=== PATIENT | male | born 1995 | race Caucasian/White ===

== ENCOUNTER 2018-03-31 17:37 | Emergency (ER) | payer SELFPAY ==
[~2018-03-31] VITALS: Ht 180.3 cm; Wt 71.8 kg
[2018-03-31 18:08] LABS: BASOPHILS # (AUTO) 0.03 x10^3/uL (0-0.1); BASOPHILS % (AUTO) 1 % (0-1); EOSINOPHILS # (AUTO) 0.13 x10^3/uL (0-0.4); EOSINOPHILS % (AUTO) 2 % (1-7); LYMPHOCYTES # (AUTO) 2.05 x10^3/uL (1-3.4); LYMPHOCYTES % (AUTO) 31 % (22-44); MD NO; MEAN CORPUSCULAR HEMOGLOBIN 30.2 pg (27.5-34.5); MEAN CORPUSCULAR HGB CONC 35.1 g/dL (33.2-36.2); MEAN PLATELET VOLUME 9.6 fL (7.4-10.4); MONOCYTES # (AUTO) 0.48 x10^3/uL (0.2-0.8); MONOCYTES % (AUTO) 7 % (2-9); NEUTROPHILS # (AUTO) 3.89 x10^3/uL (1.8-6.8); NEUTROPHILS % (AUTO) 59 % (42-75); PLATELET COUNT 219 x10^3/uL (130-400); RED BLOOD COUNT 5.73 x10^6/uL (4.38-5.82); RED CELL DISTRIBUTION WIDTH 12.9 % (9.4-14.8)
[2018-03-31 18:20] LABS: ALANINE AMINOTRANSFERASE 43 U/L (12-78); ALBUMIN 3.7 g/dL (3.4-5.0); ANION GAP 8 mmol/L (5-15); CALCIUM 8.6 mg/dL (8.5-10.1); CHLORIDE 106 mmol/L (98-107); CREATININE 1.03 mg/dL (0.7-1.3)
[2018-03-31 18:22] LABS: ALKALINE PHOSPHATASE 127 U/L (45-117); BILIRUBIN,TOTAL 0.5 mg/dL (0.2-1.0); TOTAL PROTEIN 6.8 g/dL (6.4-8.2)
[2018-03-31 18:44] LABS: MICROSCOPIC NOT IND
[2018-03-31 18:48] LABS: CULTURE INDICATED? NO
[2018-03-31 19:00] VITALS: BP 110/63
== END 2018-03-31 19:37 | disposition home or self-care (01) ==
LOC: ED 18:00
DX: R10.84 Generalized abdominal pain (principal); Z88.8 Allergy status to other drugs, medicaments and biological substances
CPT/HCPCS: 36415; 74021; 80053; 81003; 83690; 85025; 99285

== ENCOUNTER 2018-05-24 08:20 | Emergency (ER) | payer OTHER ==
[~2018-05-24] VITALS: Ht 180.3 cm; Wt 73.5 kg
[2018-05-24] MEDS ORDERED: ASPIRIN 81 MG TABLET CHEW PO ONE (09:00)
[2018-05-24 09:28] LABS: BASOPHILS # (AUTO) 0.03 x10^3/uL (0-0.1); BASOPHILS % (AUTO) 0 % (0-1); EOSINOPHILS # (AUTO) 0.25 x10^3/uL (0-0.4); EOSINOPHILS % (AUTO) 4 % (1-7); LYMPHOCYTES # (AUTO) 1.94 x10^3/uL (1-3.4); LYMPHOCYTES % (AUTO) 28 % (22-44); MD NO; MEAN CORPUSCULAR HEMOGLOBIN 29.6 pg (27.5-34.5); MEAN CORPUSCULAR HGB CONC 34.3 g/dL (33.2-36.2); MEAN CORPUSCULAR VOLUME 86.3 fL (81-97); MONOCYTES # (AUTO) 0.55 x10^3/uL (0.2-0.8); MONOCYTES % (AUTO) 8 % (2-9); NEUTROPHILS # (AUTO) 4.16 x10^3/uL (1.8-6.8); NEUTROPHILS % (AUTO) 60 % (42-75); PLATELET COUNT 193 x10^3/uL (130-400); RED BLOOD COUNT 5.59 x10^6/uL (4.38-5.82); RED CELL DISTRIBUTION WIDTH 13.1 % (9.4-14.8)
[2018-05-24 09:38] LABS: ALANINE AMINOTRANSFERASE 39 U/L (12-78); ALBUMIN 3.8 g/dL (3.4-5.0); ANION GAP 4 mmol/L (5-15); CALCIUM 8.1 mg/dL (8.5-10.1); CHLORIDE 109 mmol/L (98-107); CREATININE 0.88 mg/dL (0.7-1.3)
[2018-05-24 09:43] LABS: ALKALINE PHOSPHATASE 138 U/L (45-117); BILIRUBIN,TOTAL 0.4 mg/dL (0.2-1.0); TOTAL PROTEIN 7.1 g/dL (6.4-8.2); TROPONIN I < 0.015 ng/mL (0.000-0.045)
[2018-05-24] MEDS ORDERED: RANI150T23 PO (10:25)
[2018-05-24 10:58] VITALS: BP 126/72
== END 2018-05-24 11:00 | disposition home or self-care (01) ==
LOC: ED 10:47
DX: R07.89 Other chest pain (principal)
CPT/HCPCS: 36415; 71046; 80053; 83690; 84484; 85025; 93005; 99285

== ENCOUNTER 2018-09-18 16:26 | Emergency (ER) | payer MEDICAID ==
[~2018-09-18] VITALS: Ht 177.8 cm; Wt 72.2 kg
[~2018-09-18 16:26] MED LIST: RANI150T23 PO
[2018-09-18 16:32] VITALS: BP 127/87
[2018-09-18 16:59] LABS: BASOPHILS # (AUTO) 0.04 x10^3/uL (0-0.1); BASOPHILS % (AUTO) 1 % (0-1); EOSINOPHILS # (AUTO) 0.22 x10^3/uL (0-0.4); EOSINOPHILS % (AUTO) 4 % (1-7); LYMPHOCYTES # (AUTO) 2.18 x10^3/uL (1-3.4); LYMPHOCYTES % (AUTO) 37 % (22-44); MD NO; MEAN CORPUSCULAR HEMOGLOBIN 29.3 pg (27.5-34.5); MEAN CORPUSCULAR HGB CONC 34.2 g/dL (33.2-36.2); MEAN CORPUSCULAR VOLUME 85.7 fL (81-97); MEAN PLATELET VOLUME 9.8 fL (7.4-10.4); MONOCYTES % (AUTO) 8 % (2-9); NEUTROPHILS # (AUTO) 3.04 x10^3/uL (1.8-6.8); NEUTROPHILS % (AUTO) 51 % (42-75); PLATELET COUNT 199 x10^3/uL (130-400); RED BLOOD COUNT 5.57 x10^6/uL (4.38-5.82); RED CELL DISTRIBUTION WIDTH 13.1 % (9.4-14.8)
[2018-09-18 17:09] LABS: ALBUMIN 4.4 g/dL (3.4-5.0); ANION GAP 7 mmol/L (5-15); CALCIUM 9.1 mg/dL (8.5-10.1); CHLORIDE 106 mmol/L (98-107); CREATININE 0.97 mg/dL (0.7-1.3)
--- NOTE | 2018-09-18 17:15 | NUR ---
Patient ambulated to room from lobby with steady gait and balance.
[2018-09-18] MEDS ORDERED: OMEP-110 PO (18:04)
--- NOTE | 2018-09-18 18:04 | NUR ---
Pt has c/o epigastric pain with "possible h.pylori and body pains." NADN. Pt connected to all monitors. No need expressed at this time.
--- NOTE | 2018-09-18 18:42 | NUR ---
Patient given discharge instructions and they have confirmed that they understand the instructions. Patient ambulatory with steady gait. Pt left with prescriptions, discharge paperwork, and all personal belongings. Pt refusing discharge vital signs to be taken, "I am ready to leave now".
== END 2018-09-18 18:45 | disposition home or self-care (01) ==
LOC: ED 18:15
DX: R07.89 Other chest pain (principal); K29.00 Acute gastritis without bleeding; M79.10 Myalgia, unspecified site; M54.2 Cervicalgia
CPT/HCPCS: 36415; 71045; 80048; 82040; 85025; 93005; 99284

== ENCOUNTER 2018-11-29 12:19 | Emergency (ER) | payer MEDICAID ==
[~2018-11-29] VITALS: Ht 180.3 cm; Wt 74.0 kg
[~2018-11-29 12:19] MED LIST changes: +OMEP-110 PO
[2018-11-29] MEDS ORDERED: SODIUM CHLORIDE FLUSH 10ML SYR IVF ONE (13:00)
[2018-11-29 13:02] LABS: BASOPHILS # (AUTO) 0.02 x10^3/uL (0-0.1); BASOPHILS % (AUTO) 1 % (0-1); EOSINOPHILS # (AUTO) 0.06 x10^3/uL (0-0.4); EOSINOPHILS % (AUTO) 2 % (1-7); LYMPHOCYTES # (AUTO) 1.57 x10^3/uL (1-3.4); LYMPHOCYTES % (AUTO) 36 % (22-44); MD NO; MEAN CORPUSCULAR HEMOGLOBIN 29.4 pg (27.5-34.5); MEAN CORPUSCULAR HGB CONC 34.5 g/dL (33.2-36.2); MEAN CORPUSCULAR VOLUME 85.3 fL (81-97); MEAN PLATELET VOLUME 10.3 fL (7.4-10.4); MONOCYTES # (AUTO) 0.39 x10^3/uL (0.2-0.8); MONOCYTES % (AUTO) 9 % (2-9); NEUTROPHILS # (AUTO) 2.34 x10^3/uL (1.8-6.8); NEUTROPHILS % (AUTO) 53 % (42-75); PLATELET COUNT 195 x10^3/uL (130-400); RED BLOOD COUNT 5.64 x10^6/uL (4.38-5.82); RED CELL DISTRIBUTION WIDTH 13.4 % (9.4-14.8)
[2018-11-29 13:13] LABS: ALBUMIN 4.9 g/dL (3.4-5.0); ANION GAP 4 mmol/L (5-15); CALCIUM 9.6 mg/dL (8.5-10.1); CHLORIDE 106 mmol/L (98-107)
[2018-11-29 13:24] LABS: ALANINE AMINOTRANSFERASE 38 U/L (12-78); ALKALINE PHOSPHATASE 122 U/L (45-117); BILIRUBIN,TOTAL 0.6 mg/dL (0.2-1.0); CREATININE 1.07 mg/dL (0.7-1.3); TOTAL PROTEIN 8.1 g/dL (6.4-8.2)
--- NOTE | 2018-11-29 13:29 | NUR ---
pt presented to ed with right lower quadrant abd pain since last night. pt has been seeing a gi doctor at which he was getting lab work done for celiac disease. pt a&ox4. pt placed on bp and cont. pulse oximeter. assessment completed. call light in reach.
--- NOTE | 2018-11-29 13:59 | NUR ---
PT GIVEN WATER TO DRINK
[2018-11-29 15:10] VITALS: BP 132/75
--- NOTE | 2018-11-29 15:10 | NUR ---
PT DISCHARGED WITH DISCHARGE INSTRUCTIONS AND FOLLOW UP INSTRUCTIONS.
== END 2018-11-29 15:12 | disposition home or self-care (01) ==
LOC: ED 15:06
DX: K90.0 Celiac disease (principal); R10.31 Right lower quadrant pain
CPT/HCPCS: 36415; 80053; 85025; 99283

== ENCOUNTER 2020-04-19 20:03 | Emergency (ER) | payer SELFPAY ==
[~2020-04-19] VITALS: Ht 177.8 cm; Wt 37.7 kg
[~2020-04-19 20:03] MED LIST changes: +RANI-467 PO; -RANI150T23 PO
--- NOTE | 2020-04-19 20:37 | NUR ---
PT STATES HE STEPPED ON BAILING WIRE, PUNCTURE SITE TO BALL OF FOOT RT LATERAL, WAS WEARING GYM SHOES. TD BOOSTER 01/18/2017. Addendum: 04/19/20 at 2038 by ALONZO CORRECTION: LT FOOT
--- NOTE | 2020-04-19 20:44 | NUR ---
PT REQUESTING IBUPROFEN. ERP WILL BE NOTIFIED.
[2020-04-19] MEDS ORDERED: IBUPROFEN 600 MG TABLET PO ONE (21:00)
[2020-04-19] MEDS ORDERED: IBUPROFEN 600 MG TABLET ONE (21:05)
[2020-04-19 21:42] VITALS: BP 121/58
== END 2020-04-19 21:44 | disposition home or self-care (01) ==
LOC: ED 21:29
DX: S91.332A Puncture wound without foreign body, left foot, initial encounter (principal); X58.XXXA Exposure to other specified factors, initial encounter; Y93.01 Activity, walking, marching and hiking; Y92.89 Other specified places as the place of occurrence of the external cause; Y99.8 Other external cause status
CPT/HCPCS: 99283

== ENCOUNTER 2021-02-12 16:11 | Emergency (ER) | payer OTHER ==
[~2021-02-12] VITALS: Ht 177.8 cm; Wt 89.4 kg
[2021-02-12] MEDS ORDERED: FAMOTIDINE 20 MG TABLET ONE (16:22)
[2021-02-12] MEDS ORDERED: DIPHENHYDRAMINE 25 MG CAPSULE ONE (16:23)
[2021-02-12] MEDS ORDERED: FAMOTIDINE 20 MG TABLET PO ONE (16:30)
[2021-02-12] MEDS ORDERED: DIPHENHYDRAMINE 25 MG CAPSULE PO ONE (16:30)
--- NOTE | 2021-02-12 18:19 | NUR ---
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
[2021-02-12 18:32] VITALS: BP 125/80
--- NOTE | 2021-02-12 18:33 | NUR ---
PT REPORTS HIS TONGUE DOESN'T FEEL ITCHY ANYMORE. DARRYL THOMPSON AT BEDSIDE
== END 2021-02-12 19:44 | disposition home or self-care (01) ==
LOC: ED 19:23
DX: L29.9 Pruritus, unspecified (principal); T63.441A Toxic effect of venom of bees, accidental (unintentional), initial encounter; F17.290 Nicotine dependence, other tobacco product, uncomplicated
CPT/HCPCS: 99284; 99406; J7512; Q0163

== ENCOUNTER 2021-05-08 19:55 | Emergency (ER) | payer SELFPAY ==
[~2021-05-08] VITALS: Ht 177.8 cm; Wt 87.0 kg
[2021-05-08 20:16] VITALS: BP 135/75
[2021-05-08 20:59] LABS: BASOPHILS % (AUTO) 1 % (0-1); EOSINOPHILS % (AUTO) 2 % (1-7); LYMPHOCYTES % (AUTO) 37 % (22-44); MEAN CORPUSCULAR HEMOGLOBIN 29.4 pg (27.5-34.5); MEAN CORPUSCULAR HGB CONC 35.3 g/dL (33.2-36.2); MEAN PLATELET VOLUME 9.4 fL (7.4-10.4); MONOCYTES % (AUTO) 7 % (2-9); NEUTROPHILS % (AUTO) 54 % (42-75); PLATELET COUNT 195 x10^3/uL (130-400); RED CELL DISTRIBUTION WIDTH 12.8 % (9.4-14.8)
[2021-05-08 21:13] LABS: ALANINE AMINOTRANSFERASE 31 U/L (12-78); ALBUMIN 4.3 g/dL (3.4-5.0); ANION GAP 6 mmol/L (5-15); CALCIUM 9.4 mg/dL (8.5-10.1); CHLORIDE 106 mmol/L (98-107); CREATININE 1.08 mg/dL (0.7-1.3)
[2021-05-08 21:15] LABS: ALKALINE PHOSPHATASE 91 U/L (45-117); BILIRUBIN,TOTAL 0.6 mg/dL (0.2-1.0)
--- NOTE | 2021-05-08 22:58 | NUR ---
PT AMBULATORY TO ROOM FROM LOBBY
--- NOTE | 2021-05-08 23:47 | NUR ---
F/U AND D/C INSTRUCTIONS GIVEN TO PT AND HE V/U. PT AMBULATED TO DISCHARGE DESK, NO ACUTE DISTRESS.
== END 2021-05-08 23:49 | disposition home or self-care (01) ==
LOC: ED 20:15
DX: R20.2 Paresthesia of skin (principal); R94.31 Abnormal electrocardiogram [ECG] [EKG]
CPT/HCPCS: 36415; 70450; 80053; 85025; 93005; 99285